=== PATIENT | female | born 1960 | race Caucasian/White ===

== ENCOUNTER 2019-05-21 06:53 | Emergency (ER) | payer SELFPAY ==
--- NOTE | 2019-05-21 07:19 | EDM.PDOC ---
ED HPI GENERAL MEDICAL PROBLEM - General Chief Complaint: General Stated Complaint: general/dental pain Time Seen by Provider: 05/21/19 06:54 Source of Information: Reports: Patient History Limitations: Reports: No Limitations - History of Present Illness INITIAL COMMENTS - FREE TEXT/NARRATIVE: Patient comes in to the emergency department for left upper mouth dental discomfort. Patient came into the emergency department to discuss a bill from 2011. The nursing staff she was acting acting bizarre and could not stay on track. Patient denies any mental illness or mental concerns. She states that she works for the [employer] is traveling through. She is driving from [place] to [place] to be closer to her family. She states that she has been working for the [employer] for 20 years. She states that she currently does not have any other jobs or income. She also believes the [employer] is helping guide her through her journey. She denies hearing voices or seeing shadows. She denies any grandiosities or flight of ideas. States back in high school she was told her first name, middle name, and last name psychiatric diagnosis on a computer code. Patient currently states that she does not have any medications and she is not on any medications. Patient's main concern today states that she has had dental discomfort since 2011 when she had a root canal. She states that she has seen 3 different doctors since then to monitor and treat her teeth concerns. Patient denies any fever, nausea, vomiting, lightheadedness, shortness of breath, chest pain, numbness and tingling, swollen gums, bleeding, abnormal mouth odor, cardiac anomalies or sensitivity to hot or cold items currently. States things have been fairly well over the course the last 6 months regarding her tooth even though she has noticed some discomfort on a daily basis. Today she notice to not be having much pain in that area until she was driving through the area she believes that the cell phone towers have caused interference with her root canal and cause the discomfort and though while she was getting her bill cleared up she would make sure "we didn't see anything grossly wrong". Patient denies any Illicit drug or alcohol use, suicidal feelings, ideation, plan or intent or homicidal ideation. Poor historian - only offers dental-root canal in 2011. Not open to discussing any past psychiatric history and states she has never been on medications other than amoxicillin in 2012 for the root canal. Location: Reports: Face Improves with: Reports: None Worsens with: Reports: None Associated Symptoms: Reports: No Other Symptoms - Related Data Allergies Allergy/AdvReac Type Severity Reaction Status Date / Time No Known Allergies Allergy Verified 05/21/19 06:57 Home Meds: Home Meds Amoxicillin/Potassium Clav [Amox-Clav 875-125 mg Tablet] 1 tab PO BID 05/21/19 [ History] Past Medical History - Past Surgical History HEENT Surgical History: Reports: Oral Surgery Social & Family History - Tobacco Use Smoking Status *Q: Unknown Ever Smoked ED ROS GENERAL - Review of Systems Review Of Systems: Comprehensive ROS is negative, except as noted in HPI. Constitutional: Reports: No Symptoms HEENT: Reports: Dental Pain. Denies: Ear Discharge, Ear Pain, Eye Discharge, Nose Pain, Rhinitis, Sinus Problem Respiratory: Reports: No Symptoms Cardiovascular: Reports: No Symptoms Endocrine: Reports: No Symptoms GI/Abdominal: Reports: No Symptoms Musculoskeletal: Reports: No Symptoms ED EXAM, GENERAL - Physical Exam Exam: See Below Exam Limited By: No Limitations General Appearance: Alert, WD/WN, No Apparent Distress Ears: Normal External Exam, Normal Canal, Hearing Grossly Normal Ear Exam: Bilateral Ear: Auricle Normal, Canal Normal, TM normal Nose: Normal Inspection, Normal Mucosa, No Blood Throat/Mouth: Normal Inspection, Normal Lips, Normal Teeth, Normal Gums, Normal Oropharynx, Normal Voice, No Airway Compromise. No: Dysphagia, Inflammation, Perioral Cyanosis Head: Atraumatic, Normocephalic Neck: Normal Inspection, Supple, Non-Tender Respiratory/Chest: No Respiratory Distress, Lungs Clear, Normal Breath Sounds, No Accessory Muscle Use, Chest Non-Tender Cardiovascular: Normal Peripheral Pulses, Regular Rate, Rhythm, No Edema Extremities: Normal Range of Motion, No Pedal Edema, Normal Capillary Refill Neurological: Alert, Oriented, Normal Gait Skin Exam: Warm, Dry, Intact, Normal Color Course - Vital Signs Last Recorded V/S: Last Vital Signs Temp 36.1 C 05/21/19 07:00 Pulse 70 05/21/19 07:00 Resp 18 05/21/19 07:00 BP 148/78 H 05/21/19 07:00 Pulse Ox 100 05/21/19 07:00 Departure - Departure Time of Disposition: 07:15 Disposition: Home, Self-Care 01 Condition: Good Clinical Impression: Pain, dental - Discharge Information *PRESCRIPTION DRUG MONITORING PROGRAM REVIEWED*: Not Applicable *COPY OF PRESCRIPTION DRUG MONITORING REPORT IN PATIENT ERWIN: Not Applicable Instructions: Acetaminophen tablets or caplets, Acute Pain, Adult Additional Instructions: 1. rest 2. increase your water intake 3. Continue all at home medications 4. Activity and diet as tolerated 5. Can take over the counter Tylenol or ibuprophen for any pain or discomfort 6. Follow up with PCP if symptoms continue, return, or progress 7. Call with any questions or concerns Sepsis Event Note - Evaluation Sepsis Screening Result: No Definite Risk - Focused Exam Vital Signs: Vital Signs Temp Pulse Resp BP Pulse Ox 05/21/19 07:00 36.1 C 70 18 148/78 H 100 Date Exam was Performed: 05/21/19 Time Exam was Performed: 07:13 - Assessment/Plan Assessment:: 1. dental pain 2. unspecified schizophrenia Plan: 1. Patient is not willing to have lab completed 2. She is not willing and does not feel she has any mental health concerns that need to be addressed at this time 3. Patient is not requesting any medications for her tooth other than to evaluate to ensure she does not need antibiotics prior to returning home. Assessment finding negative. 4. Patient is encouraged to follow up with her dentist if the discomfort continues or progress 5. Did discuss if she feels any paranoia or unsafe she should be evaluate at psychiatric center who may be able to offer medication management. 6. Patient is not a harm to self or others at this time. Did contact dispatch to ensure pt is not listed as a vulnerable adult or missing person since her story was inconsistent and she appears to be traveling through. 7. Education provided the patient regarding activity, diet, rest, over-the- counter medication modalities, and follow-up care was provided 8. Patient and family are agreeable to the above plan of care 9. All questions and concerns were addressed with the patient and family prior to discharge ED EXAM, BEHAVIORAL HEALTH - Physical Exam Exam: See Below Exam Limited By: No Limitations General Appearance: Alert, WD/WN, No Apparent Distress Psychiatric: Flight of Ideas, Denominational Delusions, Grandiose Thoughts, Paranoid Thoughts. No: Depressed Mood, Flat Affect, Incoherent, Restless, Tearful, Agitated, Disoriented, Poor Eye Contact, Uncooperative, Withdrawn, Homicidal Thoughts, Phobic, Suicidal Plan, Suicidal Thoughts, Auditory Hallucinations, Visual Hallucinations, Pressured Speech, Threatening Behavior
== END 2019-05-21 07:25 | disposition home or self-care (01) ==
LOC: VM.ED 06:53
DX: K08.89 Other specified disorders of teeth and supporting structures (principal)
CPT/HCPCS: 99282; 99283-GF